=== PATIENT | female | born 1980 | race Caucasian/White ===

== ENCOUNTER → 2017-05-19 | Outpatient (CLI) | payer BC ==
--- NOTE | 2017-05-20 07:55 | MR ---
EXAMINATION TYPE: MR brain/lspine wo con DATE OF EXAM: 05/19/2017 COMPARISON: NONE HISTORY: Migraines, back pain CONTRAST: Performed utilizing 0 mL intravenous Gadavist gadolinium contrast. TECHNIQUE: Multiplanar, multiecho imaging on a 3.0 Vianca magnet is performed through the brain. Stud y is performed within 24 hours of arrival to the hospital. The craniovertebral junction is normal. The pituitary is normal. Diffusion-weighted imaging is performed. No abnormal hyperintensity is present to suggest an acute i ntracranial infarct or acute ischemic change. A Virchow-Noble space may be in the anterior inferior left basal ganglion. No suspicious signal mcclure es within the brain are evident. Temporal lobes appear symmetrical. Ventricles and sulci are appropriate for the patient age. IMPRESSIONS: 1. Normal MRI brain EXAMINATION TYPE: MR brain/lspine wo con DATE OF EXAM: 05/19/2017 COMPARISON: 05/31/2013 HISTORY: Migraines, back pain CONTRAST: 0 mL intravenous Gadavist. TECHNIQUE: Multiplanar, multisequence images of the lumbar spine were acquired. FINDINGS: Cord terminates at the L1-L2 level. L5-S1: No significant disc bulge or disc herniation. No spinal canal stenosis. No foraminal stenosi s. L4-L5: No significant disc bulge or disc herniation. No spinal canal stenosis. No foraminal stenosi s. There is minimal disc desiccation at this level. No loss of disc height is evident L3-L4: Broad-based disc bulge is present with mild anterior thecal sac flattening. No spinal canal st enosis or neural foraminal stenosis is present. There is disc desiccation. L2-L3: No significant disc bulge or disc herniation. No spinal canal stenosis. No foraminal stenosi s. Neural foramen are patent.. L1-L2: No significant disc bulge or disc herniation. No spinal canal stenosis. No foraminal stenosi s. Neural foramen are patent.. T12-L1: No significant disc bulge or disc herniation. No spinal canal stenosis. No foraminal stenos is. Neural foramen are patent.. Comparison: Disc desiccation at the L4-5 level is developing from the comparison study. The L3-4 leve l appears stable. IMPRESSION: 1. Mild degenerative disc changes with desiccation at L3-4 and L4-5. 2. The L4-5 level is progressive from the prior study. The L3-4 level is stable from prior study
== END | disposition home or self-care (01) ==
LOC: RADMRIMAIN 13:00
PROVIDERS: ATTEND Nurse Practitioner Acute Care
DX: M47.816 Spondylosis without myelopathy or radiculopathy, lumbar region (principal); R51 Headache
CPT/HCPCS: 70551; 72148

== ENCOUNTER → 2017-05-22 | Outpatient (CLI) | payer BC ==
[2017-05-22 09:56] LABS: Basophils % (A) 0 %; Eosinophils # (A) 0.1 k/uL (0-0.7); Eosinophils % (A) 1 %; HCT 40.7 % (34.0-46.0); HGB 13.9 gm/dL (11.4-16.0); Lymphocytes # (A) 2.1 k/uL (1.0-4.8); Lymphocytes % (A) 22 %; MCH 30.9 pg (25.0-35.0); MCHC 34.1 g/dL (31.0-37.0); MCV 90.6 fL (80.0-100.0); Mean Platelet Volume 7.8; Monocytes # (A) 0.3 k/uL (0-1.0); Monocytes % (A) 3 %; Neutrophils # (A) 6.9 k/uL (1.3-7.7); Neutrophils % (A) 73 %; Platelet Count 311 k/uL (150-450); RBC 4.49 m/uL (3.80-5.40); RDW 13.3 % (11.5-15.5); WBC 9.4 k/uL (3.8-10.6)
[2017-05-22 10:08] LABS: ALT 33 U/L (9-52); AST 27 U/L (14-36); Alkaline Phosphatase 82 U/L (38-126); Anion Gap 9 mmol/L; Blood Urea Nitrogen 13 mg/dL (7-17); C Reactive Protein 10.2 mg/L (<10.0); Calcium 9.6 mg/dL (8.4-10.2); Carbon Dioxide 25 mmol/L (22-30); Chloride 108 mmol/L (98-107); Cholesterol 240 mg/dL (<200); Glucose 101 mg/dL (74-99); HDL Cholesterol 40 mg/dL (40-60); LDL Cholesterol,Calculated 146 mg/dL (0-99); Potassium 4.7 mmol/L (3.5-5.1); Sodium 142 mmol/L (137-145); Total Bilirubin 0.3 mg/dL (0.2-1.3); Total Protein 6.8 g/dL (6.3-8.2); Triglycerides 272 mg/dL (<150)
[2017-05-22 11:32] LABS: Erythrocyte Sedimentation Rate 10 mm/hr (0-20)
[2017-05-22 16:44] LABS: Rheumatoid Factor 10 IU/mL (0-15)
[2017-05-22 17:24] LABS: Cyclic Citrullinated Pep IgG NEGATIVE (NEGATIVE)
== END | disposition home or self-care (01) ==
LOC: LABWHC1 09:01
PROVIDERS: ATTEND Family Medicine
DX: Z00.00 Encounter for general adult medical examination without abnormal findings (principal); E78.5 Hyperlipidemia, unspecified; I49.9 Cardiac arrhythmia, unspecified; M35.3 Polymyalgia rheumatica
CPT/HCPCS: 36415; 80053; 80061; 84443; 85025; 85652; 86038; 86140; 86200; 86431; 93005